=== PATIENT | male | born 1985 | race Hispanic/Latino ===

== ENCOUNTER 2021-12-01 14:54 | Emergency (ER) | payer OTHER, SELFPAY ==
[2021-12-01 15:22] VITALS: BP 131/83; PULSE 94; RESP 18; TEMP 36.6; O2SAT 97; BMI 38.4
--- NOTE | 2021-12-01 16:27 | ED_ITS ---
HPI - Back Pain/Injury <LINDA Chris - Last Filed: 12/01/21 16:31> General Chief Complaint: Back Pain/Injury Stated Complaint: Severe back pain Time Seen by Provider: 12/01/21 16:11 Source: patient History of Present Illness HPI Narrative: This is a 36-year-old male who presents to the emergency department complaining of acute exacerbation of chronic low back pain from an injury approximately 20 years ago with right-sided sciatica which started yesterday. Patient states that he lifted up his child which triggered his pain, having muscle spasms and sciatica symptoms on the right. He denies any recent fever, denies incontinence or muscle weakness. States that his pain is significant but he is able to walk. Related Data Previous Rx's Medication Instructions Recorded lidocaine 5 % topical patch 1 patch topical Q12HR PRN back 12/01/21 (Lidoderm) pain #15 ea methocarbamol 500 mg tablet 500 mg PO TID PRN muscle spasm #14 12/01/21 tabs prednisone 50 mg tablet 50 mg PO DAILY #5 tabs 12/01/21 Review of Systems <LINDA Chris - Last Filed: 12/01/21 16:31> Review of Systems Narrative: General: denies fever, chills Head/Neck: denies headache, neck pain Eyes: denies visual changes, eye pain Cardio: denies chest pain, palpitations Respiratory: denies shortness of breath, cough GI: denies abdominal pain, nausea, vomiting, or diarrhea : denies dysuria, hematuria or flank pain MSK: Endorses acute exacerbation of low back pain with right-sided sciatica, denies new joint pain, muscle weakness or swelling Skin: denies rash, itching or wound Neuro: denies numbness, tingling, dizziness Patient History <LINDA Chris - Last Filed: 12/01/21 16:31> Social History Smoking Status: Current some day smoker Smoking Status: Current some day smoker alcohol intake frequency: a few times a month Substance Use Type: does not use Exam <LINDA Chris - Last Filed: 12/01/21 16:31> Narrative Exam Narrative: Independently reviewed vitals signs and nursing notes. General: cooperative, comfortable, in no acute distress, well groomed Head: atraumatic, symmetrical facial expressions Neck: supple Eyes: equal round and reactive, EOMI, conjunctiva normal Nose: nares patent, no rhinorrhea Mouth/Throat: moist mucus membranes Cardiovascular: regular rate and rhythm, no peripheral edema, warm extremities Respiratory: normal effort, able to speak in complete sentences, no audible wheezing, stridor, or rales. No retractions or tachypnea. GI: abdomen soft, nontender to palpation, nondistended, no masses, no exquisite tenderness with exam, without guarding or rebound. MSK: moves all extremities, neurovascularly intact, muscle tension to the lumbar paraspinal musculature, patient is ambulatory with steady gait, without weakness, normal tone Skin: brisk capillary refill, no rash, no erythema Neuro: normal speech and cognition, A&O x3 Psych: mental status is grossly normal, congruent mood, normal affect, pleasant and cooperative Initial Vital Signs Initial Vital Signs: Vital Signs Temperature 97.9 F 12/01/21 15:22 Pulse Rate 94 H 12/01/21 15:22 Respiratory Rate 18 12/01/21 15:22 Blood Pressure 131/83 12/01/21 15:22 Pulse Oximetry 97 12/01/21 15:22 Oxygen Delivery Method 12/01/21 15:22 <Talia Montiel DO - Last Filed: 12/06/21 03:44> Initial Vital Signs Initial Vital Signs: Vital Signs Temperature 97.9 F 12/01/21 15:22 Pulse Rate 94 H 12/01/21 15:22 Respiratory Rate 18 12/01/21 15:22 Blood Pressure 131/83 12/01/21 15:22 Pulse Oximetry 97 12/01/21 15:22 Oxygen Delivery Method 12/01/21 15:22 Course <LINDA Chris - Last Filed: 12/01/21 16:31> Orders Ordered: Discontinued Medications Acetaminophen (Acetaminophen 325 Mg Tablet) 975 mg PO NOW ONE Stop: 12/01/21 16:13 Last Admin: 12/01/21 16:34 Dose: 975 mg Documented By: THERESE Ketorolac Tromethamine (Ketorolac 30 Mg/Ml Vial) 15 mg IM NOW ONE Stop: 12/01/21 16:13 Last Admin: 12/01/21 16:34 Dose: 15 mg Documented By: THERESE Methocarbamol (Methocarbamol 500 Mg Tablet) 500 mg PO NOW ONE Stop: 12/01/21 16:16 Last Admin: 12/01/21 16:35 Dose: 500 mg Documented By: THERESE Oxycodone HCl (Oxycodone Ir 5 Mg Tablet) 5 mg PO NOW ONE Stop: 12/01/21 16:16 Last Admin: 12/01/21 16:35 Dose: 5 mg Documented By: THERESE Prednisone (Prednisone 20 Mg Tablet) 60 mg PO NOW ONE Stop: 12/01/21 16:13 Last Admin: 12/01/21 16:35 Dose: 60 mg Documented By: THERESE Vital Signs Vital signs: Vital Signs - 8 hr 12/01/21 15:22 Temperature 97.9 F Pulse Rate 94 H Respiratory Rate 18 Blood Pressure 131/83 Pulse Oximetry 97 Oxygen Delivery Method Room Air <Talia Montiel DO - Last Filed: 12/06/21 03:44> Orders Ordered: Discontinued Medications Acetaminophen (Acetaminophen 325 Mg Tablet) 975 mg PO NOW ONE Stop: 12/01/21 16:13 Last Admin: 12/01/21 16:34 Dose: 975 mg Documented By: THERESE Ketorolac Tromethamine (Ketorolac 30 Mg/Ml Vial) 15 mg IM NOW ONE Stop: 12/01/21 16:13 Last Admin: 12/01/21 16:34 Dose: 15 mg Documented By: THERESE Methocarbamol (Methocarbamol 500 Mg Tablet) 500 mg PO NOW ONE Stop: 12/01/21 16:16 Last Admin: 12/01/21 16:35 Dose: 500 mg Documented By: THERESE Oxycodone HCl (Oxycodone Ir 5 Mg Tablet) 5 mg PO NOW ONE Stop: 12/01/21 16:16 Last Admin: 12/01/21 16:35 Dose: 5 mg Documented By: THERESE Prednisone (Prednisone 20 Mg Tablet) 60 mg PO NOW ONE Stop: 12/01/21 16:13 Last Admin: 12/01/21 16:35 Dose: 60 mg Documented By: THERESE Vital Signs Vital signs: Vital Signs - 8 hr 12/01/21 15:22 Temperature 97.9 F Pulse Rate 94 H Respiratory Rate 18 Blood Pressure 131/83 Pulse Oximetry 97 Oxygen Delivery Method Room Air MDM - Back Pain/Injury <Gillian Ordonez, [facility] - Last Filed: 12/01/21 16:31> [facility] Narrative Medical decision making narrative: This is a 36-year-old male who presents to the emergency department with an acute exacerbation of his chronic low back pain from an injury 20 years ago with right-sided sciatica symptoms. States the trigger was lifting up his child yesterday and now he has muscle spasms and sciatica in his right leg. In the emergency department he was treated with prednisone, Toradol, methocarbamol and given a prescription of Toradol, lidocaine patches methocarbamol and prednisone. Patient presents with 2 days of worsening low back pain, without trauma, and is afebrile. Given history and exam, suspect likely musculoskeletal etiology, they are nontoxic appearing with no overt risk factors for epidural hematoma or abscess. No overt evidence of critical cord compression and has a nonfocal near exam. Neurovascularly intact distally, no evidence of infection, peritoneal signs, hypertensive crisis, or abdominal pain with low suspicion for AAA. No weakness, incontinence, neurovascular or sensation changes, no concerning findings for caudal equina syndrome, lumbar fracture, without paresthesia, neuropathic pain, meningeal signs and fever. This could be a herniated disk, paraspinal or other muscle strain, ligamental injury, arthritic, nephrolithiasis/pyelonephritis, epidural abscess, chronic pain, and other diagnosis? considered less likely. Patient was given a work note, encouraged to follow up with [facility] prior to returning to work. Patient is appropriate and amenable to discharge home. Vital signs are stable on repeat examination is unremarkable. Patient has been informed of results. Patient has been given s trict return to ER precautions for any new or worsening symptoms. Patient understands to follow up closely with outpatient providers as instructed. Patient understands plan and agrees to discharge home. All questions and concerns answered at this time. Discharge Plan Departure Patient Disposition: Home Clinical Impression: Acute exacerbation of chronic low back pain, Sciatica Instructions: DI for Back Pain With Sciatica, DI for Back Spasm Activity Restrictions/Additional Instructions: You have been diagnosed with flare of your low back pain. I am sorry for your pain, please try heat and or ice, whichever is more comfortable, lidocaine patches, a muscle relaxer with an antiinflammatory/NSAID like toradol, ibuprofen or Aleve, and add Tylenol. Try to have light activity throughout the day like walking around the house. No excertional activity or excessive stretching. Please get cleared by [employer] prior to returning to work. Please take the steroids and stay on an anti-inflammatory which will help reduce the inflammation around nerve root causing the sciatica. Eat food while taking those medications so that you do not get an ulcer. Please return to the emergency department if you have worsening of this pain or if you have new weakness and are unable to walk. I hope you feel better soon. *What to do: *Please continue to take your regular medications as directed. [x] [facility] medication [facility] your [facility]: [ [facility]] [ ] New medication written as a paper prescription [ ] No new medications given *Please follow up with your primary care provider in 2-3 days, call for an appointment. Let them know you were seen in the Emergency Department and that we asked that you be seen for follow-up. We will electronically transmit a record of today's note if your PCP is in our system *If you do not have a primary care provider please contact [phone] to establish care with one of the [facility] primary care providers. *Return to Emergency Department if you should have any new, worsening, or c oncerning symptoms, such as [fever greater than 101F, chills, worsening pain, persistent vomiting or other bothersome symptoms]. Prescriptions: New prednisone 50 mg tablet 50 mg PO DAILY Qty: 5 0RF lidocaine [Lidoderm] 5 % adhesive patch,medicated 1 patch topical Q12HR PRN (Reason: back pain) Qty: 15 0RF Rx Instructions: leave on most painful area for up to 12 hrs methocarbamol 500 mg tablet 500 mg PO TID PRN (Reason: muscle spasm) Qty: 14 0RF Stand Alone Forms: Work Release Note Visit Report Forms: Patient Portal/API <Talia Montiel DO - Last Filed: 12/06/21 03:44> Cosign ED Attending Cosignature Attestation: I was immediately available in the department for consultation. Documentation has been reviewed.
[2021-12-01] MEDS: KETOROLAC 30 MG/ML VIAL 15 MG IM (16:34)
[2021-12-01] MEDS: ACETAMINOPHEN 325 MG TABLET 975 MG PO (16:34)
[2021-12-01] MEDS: OXYCODONE IR 5 MG TABLET PO (16:35)
[2021-12-01] MEDS: predniSONE 20 MG TABLET 60 MG PO (16:35)
[2021-12-01] MEDS: methocarbamoL 500 MG TABLET PO (16:35)
[2021-12-01 16:37] VITALS: BP 140/74; PULSE 80; RESP 18; O2SAT 98
== END 2021-12-01 16:37 | disposition home or self-care (01) ==
PROVIDERS: Emergency Provider Nurse Practitioner Critical Care Medicine
DX: M54.41 Lumbago with sciatica, right side (principal)
CPT/HCPCS: 96372; 99283; J1885

== ENCOUNTER → 2023-01-14 11:18 | Outpatient (CLI) | payer OTHER, SELFPAY ==
--- NOTE | 2023-01-14 | DI.MRI.S_ITS ---
PROCEDURE: MR LUMBAR SPINE WO CON INDICATIONS: Radiculopathy, lumbar region TECHNIQUE: Noncontrast sagittal T1 spin echo and T2 fast echo, sagittal STIR, and T2 fast spin echo through the lumbar spine. In cases with scoliosis, additional coronal T2 fast spin echo may be performed. COMPARISON: [facility], CR, XR LUMBAR SPINE 2 OR 3 VIEWS, 01/02/2023, 16:00. FINDINGS: Image quality: Excellent. Alignment and Curvature: There is normal bony alignment. Bone Marrow: Marrow is of normal overall signal. No acute vertebral body compression fractures. Spinal Cord: Conus medullaris terminates at the L1-L2 level. Visualized cord demonstrates normal signal and size. Paraspinous Soft Tissues: No paravertebral masses. T12-L1: Normal appearance. L1-L2: Normal appearance. L2-L3: Normal appearance. L3-L4: Minimal disc bulge. No canal stenosis or foraminal stenosis. L4-L5: Disc bulge. Facet hypertrophy. No canal stenosis or foraminal stenosis. L5-S1: Right paracentral annulus tear with associated disc bulge subjacent to the right S1 nerve root in the right lateral recess. No canal stenosis. Facet hypertrophy. No foraminal stenosis. IMPRESSION: 1. Right paracentral annulus tear subjacent to the right S1 nerve root in the right lateral recess at L5-S1. Recommend correlation for presence or absence of right S1 radicular symptoms. 2. No canal stenosis or foraminal stenosis. 3. Facet hypertrophy at L4-L5 and L5-S1. Dictated by: Saeid Altamirano M.D. on 01/16/2023 at 8:01 Approved by: Saeid Altamirano M.D. on 01/16/2023 at 8:04
== END ==
PROVIDERS: Referring Provider Physical Medicine & Rehabilitation; Visit Provider Physical Medicine & Rehabilitation
DX: M47.26 Other spondylosis with radiculopathy, lumbar region (principal); M47.27 Other spondylosis with radiculopathy, lumbosacral region
CPT/HCPCS: 72148

== ENCOUNTER → 2024-07-17 16:58 | Outpatient (CLI) | payer OTHER, SELFPAY ==
--- NOTE | 2024-07-17 17:00 | DI.MRI.S_ITS ---
PROCEDURE: MR LUMBAR SPINE WO CON INDICATIONS: LUMBAR PAIN TECHNIQUE: Noncontrast sagittal T1 spin echo and T2 fast echo, sagittal STIR, and T2 fast spin echo through the lumbar spine. In cases with scoliosis, additional coronal T2 fast spin echo may be performed. COMPARISON: [facility], MR, MR LUMBAR SPINE WO CON, 01/14/2023, 11:26. FINDINGS: Image quality: Excellent. Alignment and Curvature: There is normal bony alignment. Bone Marrow: Marrow is of normal overall signal. No acute vertebral body compression fractures. Spinal Cord: Conus medullaris terminates at the L1 level. Visualized cord demonstrates normal signal and size. Paraspinous Soft Tissues: No paravertebral masses. T12-L1: No disc bulge, spinal stenosis or foraminal narrowing. No interval change. L1-L2: No disc bulge, spinal stenosis or foraminal narrowing.Minimal epidural lipomatosis. No interval change. L2-L3: No disc bulge, spinal stenosis or foraminal narrowing. Minimal epidural lipomatosis. No interval change. L3-L4: Minimal disc bulge without spinal stenosis or foraminal narrowing. Minimal epidural lipomatosis. No interval change. L4-L5: Minimal disc bulge without spinal stenosis or foraminal narrowing. Minimal epidural lipomatosis. L5-S1: Previously identified annular tear with disc bulge. Bulge is adjacent to the S1 nerve root at the right lateral recess without interval change. No spinal stenosis or foraminal narrowing. IMPRESSION: Stable interval exam. Dictated by: Emely Cabrera M.D. on 07/18/2024 at 15:31 Approved by: Emely Cabrera M.D. on 07/18/2024 at 15:40
== END ==
LOC: MRI 17:00
PROVIDERS: Referring Provider Orthopaedic Surgery Orthopaedic Surgery of the Spine; Visit Provider Orthopaedic Surgery Orthopaedic Surgery of the Spine
DX: M51.17 Intervertebral disc disorders with radiculopathy, lumbosacral region (principal)
CPT/HCPCS: 72148